=== PATIENT | female | born 1970 | race Caucasian/White ===

== ENCOUNTER 2024-08-06 05:34 | Day surgery (SDC) | payer MEDICARE ==
[2024-08-06 06:14] VITALS: RESP 18
[2024-08-06] MEDS: Lactated Ringers 1,000 ML IV SCH (06:30)
[2024-08-06] MEDS ORDERED: DIPRIVAN 200 MG/20 ML IV ONE ×3 (07:35→08:05)
[2024-08-06 08:21] VITALS: TEMP 97.6
[2024-08-06 08:34] VITALS: BP 122/78; PULSE 73; O2SAT 96
--- NOTE | 2024-08-07 11:10 | OP ---
SURGERY DATE/TIME: 08/06/2024 [id number] PREOPERATIVE DIAGNOSES: 1) Gastroesophageal reflux disease. 2) Screening colonoscopy. POSTOPERATIVE DIAGNOSES: 1) Normal esophagogastroduodenoscopy. 2) Colon polyps x2. PROCEDURES: 1) Esophagogastroduodenoscopy. 2) Colonoscopy. SURGEON: Wilman Marroquin MD ANESTHESIA: MAC by SANJAY Valentine. ESTIMATED BLOOD LOSS: Minimal. SPECIMENS: Two hot forceps polypectomies. DESCRIPTION OF PROCEDURE AND FINDINGS: After informed written consent was obtained, the patient was taken to the endoscopy suite. She was placed in the left lateral decubitus position and a bite block was inserted, then anesthesia was titrated to the desired level of consciousness. The endoscope was inserted in the posterior oropharynx first and under direct visualization, the esophagus was easily traversed. Esophageal mucosa was free of any lesions or mucosal abnormalities. Upon entering into the stomach, there was normal GE junction with normal rugae of the gastric mucosa. No evidence of any mucosal lesions or bleeding. The gastric antrum was noted to be within normal limits. The pylorus was traversed. The duodenum had a normal mucosal appearance free of any lesions or defects. Upon withdrawal again, all mucosal structures appeared normal. Scope was removed and then the scopes were switched. Digital rectal exam showed normal sphincter tone and no internal lesions. The scope was inserted in the rectum, and then sequentially the entire colonic mucosa was traversed. The level of the cecum was reached and verified under direct visualization of the ileocecal valve. There was a small flat sessile polyp in the cecum, grasped with a forceps, cauterized and removed in its entirety, sent for pathology testing. Upon withdrawal no other lesions were encountered until the distal sigmoid colon was reached. There was another flat sessile polyp in that region, which was likewise grasped with the forceps, cauterized and removed in its entirety, sent for pathology testing. Prior to withdrawal, retroflexion was performed and showed no internal lesions. Scope was removed and patient was transferred to the recovery room in good condition. She was advised to follow up in 1 week for pathology report and followup recommendation.
== END 2024-08-06 08:43 | disposition home or self-care (01) ==
LOC: SDC 05:34
PROVIDERS: ATTEND Family Medicine
DX: Z12.11 Encounter for screening for malignant neoplasm of colon (principal); K21.9 Gastro-esophageal reflux disease without esophagitis; K63.5 Polyp of colon
CPT/HCPCS: J2704